=== PATIENT | male | born 1940 | race Asian ===

== ENCOUNTER 2018-05-03 09:01 | Emergency (ER) | payer MEDICARE ==
[~2018-05-03] VITALS: Ht 162.6 cm; Wt 62.1 kg
[2018-05-03 09:04] VITALS: Ht 162.6 cm; Wt 62.1 kg
[2018-05-03 10:55] LABS: BASOPHIL % 0.7 % (0-2); PLATELET COUNT 230 x10^3mcL (130-400)
[2018-05-03 11:05] LABS: CALCIUM 9.5 mg/dL (8.5-10.1); CARBON DIOXIDE 29.4 mmol/L (21-32); CHLORIDE SERUM 102 mmol/L (98-107); CREATININE SERUM 1.5 mg/dL (0.7-1.3); GLUCOSE SERUM 313 mg/dL (74-106); POTASSIUM SERUM 3.8 mmol/L (3.5-5.1); SODIUM SERUM 141 mmol/L (136-145)
[2018-05-03 11:17] LABS: ALKALINE PHOSPHATASE 77 U/L (46-116); ALT/SGPT 16 U/L (16-63); AMYLASE 61 U/L (25-115); AST/SGOT 14 U/L (15-37); BILIRUBIN TOTAL 0.51 mg/dL (0.20-1.00); LIPASE 114 IU/L (73-393); T4(THYROXINE) 7.5 ug/dL (4.7-13.3)
[2018-05-03 11:18] LABS: ALBUMIN 3.3 g/dL (3.4-5.0); TOTAL PROTEIN, SERUM 8.3 g/dL (6.4-8.2)
[2018-05-03 11:35] LABS: UA SPECIFIC GRAVITY 1.025 (1.005-1.035); microscopic required? YES; urine erythrocyte TRACE (NEGATIVE)
[2018-05-03 12:25] VITALS: BP 123/60
== END 2018-05-03 12:25 | disposition home or self-care (01) ==
LOC: ED 09:01
PROVIDERS: Emergency Medicine
DX: M54.5 Low back pain (principal); G89.29 Other chronic pain; M51.36 Other intervertebral disc degeneration, lumbar region; E11.9 Type 2 diabetes mellitus without complications; I10 Essential (primary) hypertension
CPT/HCPCS: 36415; J1100; J1885